=== PATIENT | male | born 1950 | race Caucasian/White ===

== ENCOUNTER → 2018-02-27 | Outpatient (CLI) | payer OTHER, MEDICARE ==
[~2018-02-27] MED LIST: ACETAMINOPHEN-1 EACH; ACETAMINOPHEN650 M5; ARIXTRA; ASPIRIN EC325 M1; BENADRYL25 MG; COLACE100 MG; METAMUCIL283 GM; MOM; OXYIR 5 MG CAPSU5 M1; OXYIR5 MG; PEPCID; PERCOCET 5-3251 EACH
[2018-02-27 17:14] LABS: CREATININE 1.1 mg/dL (0.6-1.3)
== END ==
LOC: M.LAB 16:30 → M.CT 17:00
DX: I70.0 Atherosclerosis of aorta (principal); K76.89 Other specified diseases of liver

== ENCOUNTER → 2018-03-09 | Outpatient (CLI) | payer OTHER, MEDICARE | LOC: M.ULTRA 12:17 | DX: M79.89 Other specified soft tissue disorders (principal); E78.5 Hyperlipidemia, unspecified; M19.90 Unspecified osteoarthritis, unspecified site ==

== ENCOUNTER → 2018-03-13 | Outpatient (CLI) | payer OTHER, MEDICARE ==
--- NOTE | 2018-03-13 16:20 | 2DMMODE ---
[place] [address] 2 D/M-MODE ECHOCARDIOGRAM Name: KG ZARAGOZA Room: [facility]#: [id number] Admission: 03/13/18 Attend Phys: Karly Booker Discharge: Date of : 46 Date of Service: 03/13/18 1619 Report #: [id number] THIS REPORT FOR: //name// APPROVED REPORT Study performed: 03/13/2018 13:59:05 EXAM: Comprehensive 2D, Doppler, and color-flow Echocardiogram Patient Location: Out-Patient Status: routine BSA: 2.12 HR: 78 bpm BP: 105/62 mmHg Other Information Study Quality: Good Indications Pulmonary Hypertension 2D Dimensions LVEF(%): 54.89 (>50%) IVSd: 14.05 (7-11mm) LVOT Diam: 20.37 (18-24mm) LVDd: 50.21 mm PWd: 12.26 (7-11mm) Ascending Ao: 36.84 (22-36mm) LVDs: 35.84 (25-40mm) Aortic Root: 29.32 mm Lynch's LVEF: 54.89 % Volumes Left Atrial Volume (Systole) LA ESV Index: 16.50 mL/m2 Aortic Valve AoV Peak Deep.: 1.16 m/s AO Peak Gr.: 5.39 mmHg LVOT Max P.60 mmHg AO Mean Gr.: 3.20 mmHg LVOT Mean P.64 mmHg LVOT Max V: 0.95 m/s AO V2 VTI: 22.60 cm LVOT Mean V: 0.58 m/s ALICIA (VTI): 2.73 cm2 LVOT V1 VTI: 18.92 cm Mitral Valve E/A Ratio: 0.72 MV Decel. Time: 236.20 [place] [address] 2 D/M-MODE ECHOCARDIOGRAM Name: KG ZARAGOZA Room: [facility]#: [id number] Admission: 03/13/18 Attend Phys: Karly Booker Discharge: Date of : 46 Date of Service: 03/13/18 1619 Report #: [id number] MV E Max Deep.: 0.62 m/s MV PHT: 68.50 ms MVA (PHT): 3.21 cm2 TDI E/Lateral E': 8.86 E/Medial E': 8.86 Medial E' Deep.: 0.07 m/s Lateral E' Deep.: 0.07 m/s Pulmonary Valve PV Peak Deep.: 0.87 m/s PV Peak Gr.: 3.03 mmHg Tricuspid Valve RAP Estimate: 5.00 mmHg TR Peak Gr.: 15.17 mmHg RVSP: 20.17 mmHg PA Pressure: 20.17 mmHg Left Ventricle The left ventricle is normal size. There is normal LV segmental wall motion. There is normal left ventricular wall thickness. Left ventricular systolic function is normal. The left ventricular ejection fraction is within the normal range. LVEF is 55-60%. Grade I - abnormal relaxation pattern. Right Ventricle Right ventricle is borderline dilated. The right ventricular systolic function is normal. Atria The left atrium size is normal. The right atrium size is normal. Aortic Valve The aortic valve is normal in structure. No aortic regurgitation is present. There is no aortic valvular stenosis. Mitral Valve The mitral valve is normal in structure. There is no mitral valve regurgitation noted. No evidence of mitral valve stenosis. Tricuspid Valve The tricuspid valve is normal in structure. Mild tricuspid regurgitation.PAP 30mmHG Pulmonic Valve The pulmonary valve is normal in structure. There [place] [address] 2 D/M-MODE ECHOCARDIOGRAM Name: KG ZARAGOZA Room: [facility]#: [id number] Admission: 03/13/18 Attend Phys: Karly Booker Discharge: Date of : 46 Date of Service: 03/13/18 1619 Report #: [id number] valvular regurgitation. Great Vessels The aortic root is normal in size. IVC is normal in size and collapses with >50% inspiration Pericardium There is no pericardial effusion. <Conclusion> LVEF is 55-60%. There is normal LV segmental wall motion. Grade I - abnormal relaxation pattern. There is no aortic valvular stenosis. No aortic regurgitation is present. Mild tricuspid regurgitation. Right ventricle is borderline dilated. The right ventricular systolic function is normal. PAP 30mmHG <ELECTRONICALLY SIGNED> By: Henrik Traylor MD, FACC 03/13/18 1619 18 18 Henrik Traylor MD, FACC /INF
== END ==
LOC: M.CRD 09:00
DX: I07.1 Rheumatic tricuspid insufficiency (principal); I27.20 Pulmonary hypertension, unspecified

== ENCOUNTER → 2018-06-12 | Outpatient (CLI) | payer OTHER, MEDICARE | LOC: M.LAB 04:12 | DX: Z01.812 Encounter for preprocedural laboratory examination (principal) ==